=== PATIENT | female | born 1995 | race Two or more races ===

== ENCOUNTER 2022-10-20 08:04 | Inpatient (IN) ==
[2022-10-20] MEDS ORDERED: ePHEDrine sulfate 50 MG/ML AMP ONE (09:01)
[2022-10-20] MEDS ORDERED: fentaNYL citrate 100 MCG/2 ML VIAL ONE (09:02)
[2022-10-20] MEDS ORDERED: fentaNYL 2MCG/ML ROPIVACAINE 1.25MG/ML 100 ML BAG EPI ONE (09:02)
[2022-10-20] MEDS ORDERED: LIDOCAINE 2%/EPINEPHRINE 1:200,000 20 ML SDV ONE (09:02)
[2022-10-20] MEDS ORDERED: SODIUM CHLORIDE 0.9% INJ 10 ML VIAL ONE (09:02)
[2022-10-20] MEDS ORDERED: BUPIVACAINE 0.25% 30 ML VIAL ONE (09:02)
[2022-10-20] MEDS: LACTATED RINGER'S 1,000 ML IV PRN ×2 (09:10→10:12)
[2022-10-20] MEDS ORDERED: OXYTOCIN 30 UNITS/500 ML BAG IV PRN ×2 (09:11→17:43)
[2022-10-20] MEDS ORDERED: LIDOCAINE 1% LOCAL 20 ML VIAL INFIL PRN (09:11)
--- NOTE | 2022-10-20 09:26 | History & Physical Report ---
Date of Service October 20, 2022 Assessment & Plan (1) : (2) Gestational diabetes mellitus (GDM) affecting , antepartum: Plan 26 yo at 39 5/7 wga presents in labor VSS Fetus cat 1 Labor - will admit A1GDM - will get BG GBS neg desires epidural Admission and Anticipated Discharge Date Admission Date: October 20, 2022 History of Present Illness Chief Complaint: contractions Primary Care Provider: [facility] 26 yo at 39 5/7 wga presents w/ ctx that began around 2am and became q5min around 5am. Has had increased discharge, unsure if continuous LOF. 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 Hx: G1 2021 ectopic > R salpingectomy G2 current regular cycles denies hx STIs last pap at [facility] Allergies Allergy/AdvReac Type Severity Reaction Status Date / Time eggplant Allergy Rash Verified 10/20/22 09:16 shrimp Allergy Rash Verified 10/20/22 09:16 Home Medications Medication Instructions Recorded Confirmed Type prenat.vits,mayra,qqa-fohp-tqkgx 1 tab PO DAILY 02/27/22 10/15/22 History blood sugar diagnostic (OneTouch #150 ea 06/07/22 10/15/22 Rx Verio test strips) blood-glucose meter (OneTouch #1 ea 06/07/22 10/15/22 Rx Verio Meter) lancets 33 gauge (OneTouch Delica #150 ea 06/07/22 10/15/22 Rx Plus Lancet) acetone (urine) test (Ketone Urine #50 ea 06/08/22 10/15/22 Rx Test strips) prenat.vits,mayra,fvb-dcmi-xrgsl 1 tab PO DAILY 10/20/22 10/20/22 History Patient History Medical History Ectopic Hemorrhagic cyst of right ovary Surgical History History of salpingectomy S/P tonsillectomy Family History Mother Hypertension Social History (System 10/20/22 @ 09:16 by Michael Ivy) Smoking Status: Never smoker Hx Alcohol Use: No Hx Substance Use: No Preferred Language: Wolof Communication Ability: Effective Foundation Relations Director Required: No Beliefs That Will Affect Care: None marital status: marital status details: Annel (29) [phone] Current Living Situation: Spouse Current Living Situation Comment: lives with spouse, no pets. current occupational status: unemployed Feels Safe at Home: Yes Safety Concerns: Feels Safe At This Time Assistive Devices: None Physical Exam Genitourinary: OB Exam Abdomen: + vertex (confrimed by bsus) and + estimated weight (7-8) Manual OB Exam: + cervical dilation 3 cm, + cervical effacement 90% and + station -2 OB Exam Monitor Tracing: + external FHT monitor used, + external uterine monitor used (q5-6) and + category I (135/mod/+accel/-decel) SSE shows bag visualized at cervix, no pooling Results & Data ([facility]) Vital Signs (Past 12 Hours) Vital Signs Resp 10/20/22 08:30 20 Laboratory Results OB Labs: Blood Type B Positive 03/13/22 Antibody Screen NEGATIVE 03/13/22 Hemoglobin 12.1 g/dl (12.0-16.0) 08/06/22 Hematocrit 35.7 % (34.1-44.9) 08/06/22 Mean Corpuscular Volume 73.4 fL (80-100) L 03/13/22 Platelet Count 296 K/uL (130-400) 03/13/22 Rubella IgG Antibody Non Immune (Immune) L 03/13/22 Rapid Plasma Reagin Nonreactive (Nonreactive) 03/13/22 Hepatitis B Surface Antigen. NON-REACTIVE (NON-REACTIVE) 03/13/22 Hepatitis C Antibody (EIA) NON-REACTIVE (NON-REACTIVE) 03/13/22 HIV (1&2) Ag and Ab Confirmation NON-REACTIVE (NON-REACTIVE) 03/13/22 Glucose 1 Hour 50 gm Load 140 mg/dl (70-130) H 05/09/22 OB Optional Labs: Chlamydia trachomatis RNA NOT DETECTED (NOT DETECTED) 03/13/22 Neisseria gonorrhoeae RNA NOT DETECTED (NOT DETECTED) 03/13/22 Labs Reviewed: 03/13/22 HIV- non-reactive Hep C- non-reactive Hep B- non-reactive declines quad/afp - sLN gbs neg Diagnostic Findings 10/01 EFW 73%, ant plac Coding Level of Care Code None Diagnoses Z34.90 Gestational diabetes mellitus (GDM) affecting , antepartum O24.419
[2022-10-20 09:34] LABS: Hematocrit (blood only) 38.5 % (34.1-44.9); Hemoglobin 13.1 g/dl (12.0-16.0); Mean Corpuscular Hemoglobin 25.2 pg (25.0-34.0); Mean Corpuscular Volume 74.2 fL (80.0-100.0); Mean Platelet Volume 10.5 fL (9.4-12.3); Platelet Count 218 K/uL (130-400); RDW Standard Deviation 39.6 fL (36.4-46.3); Red Blood Count 5.19 M/uL (3.93-5.22); White Blood Count 13.65 K/ul (4.8-10.8)
[2022-10-20] MEDS ORDERED: NALBUPHINE HCL INJ 10 MG/ML AMP IV PRN (09:40)
[2022-10-20] MEDS ORDERED: diphenhydrAMINE 50 MG/ML VIAL IV PRN (09:40)
[2022-10-20] MEDS ORDERED: ePHEDrine sulfate 50 MG/ML AMP IV PRN (09:40)
[2022-10-20] MEDS ORDERED: fentaNYL 2MCG/ML ROPIVACAINE 1.25MG/ML 100 ML BAG EPI PRN (09:40)
[2022-10-20] MEDS ORDERED: NALOXONE HCL 0.4 MG/1 ML VIAL/CARP IV PRN (09:40)
[2022-10-20] MEDS ORDERED: NALOXONE HCL 1 MG in SODIUM CHLORIDE 0.9% 1000ML 1,000 ML IV PRN (09:40)
[2022-10-20] MEDS ORDERED: ONDANSETRON INJ 2 MG/ML 2 ML VIAL IV PRN (09:40)
--- NOTE | 2022-10-20 09:48 | Anesthesiology Consultation ---
Date of Service October 20, 2022 Assessment & Plan Chart Review Chart Review: Acceptable Risk for Labor Epidural Consults Requested none ASA ASA2 Proposed Anesthesia Anesthesia Type: Labor Epidural Risk / Benefits Reviewed With: PT / POA / Parent / Guardian, Accepts Plan and Informed Consent Obtained History Height/Weight Height: 5 ft 6 in Weight: 89.358 kg Allergies Allergy/AdvReac Type Severity Reaction Status Date / Time eggplant Allergy Rash Verified 10/20/22 09:16 shrimp Allergy Rash Verified 10/20/22 09:16 Medications Home Medications Medication Instructions Recorded Confirmed Last Taken prenat.vits,mayra,tip-oofq-eypef 1 tab PO DAILY 02/27/22 10/15/22 Unknown blood sugar diagnostic (OneTouch #150 ea 06/07/22 10/15/22 Unknown Verio test strips) blood-glucose meter (OneTouch #1 ea 06/07/22 10/15/22 Unknown Verio Meter) lancets 33 gauge (OneTouch Delica #150 ea 06/07/22 10/15/22 Unknown Plus Lancet) acetone (urine) test (Ketone Urine #50 ea 06/08/22 10/15/22 Unknown Test strips) prenat.vits,mayra,ymc-uekm-ujusv 1 tab PO DAILY 10/20/22 10/20/22 10/19/22 Active Medications Generic Name Dose Route Start Last Admin Trade Name Freq PRN Reason Stop Dose Admin Lactated Ringer's 1,000 mls @ 125 mls/hr 10/20/22 09:11 10/20/22 09:10 Lr IV 10/22/22 09:10 999 mls/hr .Q8H PRN Administration L&D Protocol Protocol Past Medical History Medical History Ectopic Ectopic of right ovary Gestational diabetes Hemorrhagic cyst of right ovary Exercise / Class Metabolic Activity II 4-5 Yardwork/Stairs/Walk up hill Past Family History Family History Mother Hypertension Past Surgical History Surgical History History of salpingectomy unilateral, ectopic , right, nov 2021 History of salpingectomy History of tonsillectomy S/P tonsillectomy Past Anesthesia History No Hx of Anesthesia Complications and No Family Hx of Anesthesia Complications History of PONV No Hx of PONV and No Hx of Motion Sickness Social History Smoking Status: Never smoker Hx Alcohol Use: No Hx Substance Use: No substance use type: does not use Physical Exam Vital Signs Last Vital Signs Pulse 94 H 10/20/22 09:43 Resp 20 10/20/22 08:30 Pulse Ox 99 10/20/22 09:43 ENMT Mouth: no dentition abnormality Thyromental Distance: > or= 3.5 Finger Breadths Mallampati Class: II Neck normal visual inspection Respiratory normal respiratory effort Auscultation: lungs clear to auscultation bilaterally Cardiovascular Rate/Rhythm: regular rate and regular rhythm Testing Laboratory Results 10/20/22 09:28 10/20/22 09:32 POC Glucose 105 H
--- NOTE | 2022-10-20 12:37 | Labor Progress Brief Note ---
Date of Service October 20, 2022 Subjective Comfortable w/ epidural Assessment & Plan (1) : (2) Gestational diabetes mellitus (GDM) affecting , antepartum: Plan 26 yo at 39 5/7 wga presents in labor VSS Fetus cat 1 Labor - good progress, now s/p arom. mec noted, fetus reassuring. Discussed impact that mec can have on status, pt and aware A1GDM - will get BG q4 GBS neg epidural in place Admission and Anticipated Discharge Date Admission Date: October 20, 2022 Physical Exam Genitourinary: Manual OB Exam: + cervical dilation (4-5), + cervical effacement 90%, + station -1 and + amniotic fluid (arom mec) OB Exam Monitor Tracing: + external FHT monitor used, + external uterine monitor used (q4-6) and + category I (135/mod/+accel/-decel) Results & Data ([facility]) Vital Signs (Past 12 Hours) Vital Signs Pulse Resp BP Pulse Ox 10/20/22 12:33 106 H 97 10/20/22 12:28 106 H 97 10/20/22 12:23 91 H 97 10/20/22 12:22 95 H 104/55 L 10/20/22 12:18 94 H 97 10/20/22 12:13 93 H 97 10/20/22 12:08 93 H 97 10/20/22 12:07 102 H 102/55 L 10/20/22 12:03 98 H 97 10/20/22 11:58 90 97 10/20/22 11:53 97 H 107/54 L 97 10/20/22 11:48 88 97 10/20/22 11:43 98 H 98 10/20/22 11:38 91 H 98 10/20/22 11:37 86 111/58 L 10/20/22 11:33 88 98 10/20/22 11:28 89 98 10/20/22 11:23 85 98 10/20/22 11:22 91 H 112/59 L 10/20/22 11:18 87 98 10/20/22 11:17 85 112/57 L 10/20/22 11:13 98 10/20/22 11:13 90 10/20/22 11:13 90 109/59 L 10/20/22 11:08 98 10/20/22 11:08 100 H 10/20/22 11:08 90 126/73 10/20/22 11:03 104 H 98 10/20/22 11:02 103 H 114/69 10/20/22 10:58 96 H 97 10/20/22 10:57 106 H 120/63 10/20/22 10:45 20 10/20/22 10:45 20 10/20/22 10:53 102 H 119/70 98 10/20/22 10:48 99 H 98 10/20/22 10:47 100 H 113/69 10/20/22 10:43 98 10/20/22 10:43 100 H 10/20/22 10:43 98 H 108/68 10/20/22 10:38 110 H 126/74 99 10/20/22 10:33 98 H 99 10/20/22 10:32 96 H 122/62 10/20/22 10:28 96 H 99 10/20/22 10:27 93 H 114/62 10/20/22 10:23 95 H 99 10/20/22 10:22 90 113/64 10/20/22 10:18 99 10/20/22 10:18 89 10/20/22 10:18 96 H 119/67 10/20/22 10:13 100 H 99 10/20/22 10:11 105 H 114/63 10/20/22 10:08 96 H 98 10/20/22 10:09 100 H 114/62 10/20/22 10:07 96 H 116/57 L 10/20/22 10:05 96 H 117/59 L 10/20/22 10:03 105 H 100 10/20/22 10:01 99 H 122/64 10/20/22 10:00 96 H 125/78 10/20/22 09:58 102 H 99 10/20/22 09:53 95 H 99 10/20/22 09:48 121 H 100 10/20/22 09:43 94 H 99 10/20/22 09:38 91 H 98 10/20/22 09:33 86 99 10/20/22 09:28 82 99 10/20/22 08:30 20 Coding Level of Care Code None Diagnoses Z34.90 Gestational diabetes mellitus (GDM) affecting , antepartum O24.419
--- NOTE | 2022-10-20 17:36 | Anesthesia Procedure Note ---
Date of Service October 20, 2022 Anesthesia Post Epidural Note Vital Signs Vital Signs: Temp Pulse Resp BP Pulse Ox 97.9 F 108 H 20 115/68 98 10/20/22 14:45 10/20/22 17:28 10/20/22 15:45 10/20/22 17:25 10/20/22 17:28 Notes Mental Status: alert / awake / arousable and participated in evaluation Nausea / Vomiting: adequately controlled Pain: adequately controlled Airway Patency, RR, SpO2: stable & adequate BP & HR: stable & adequate Hydration State: stable & adequate Neuraxial Anesthesia: was administered and sensory block is resolving Anesthetic Complications: no major complications apparent and Pt Satisfied with anesthetic care Epidural: Removed without complications and With tip intact
--- NOTE | 2022-10-20 17:41 | Delivery Summary ---
Vaginal Delivery Summary Date of Service October 20, 2022 Vaginal Delivery Summary and 2nd Degree LAC PREOPERATIVE DIAGNOSIS: 1. Single intrauterine at 39 5/7 wga 2. Labor 3. A1GDM 4. Rubella nonimmune POSTOPERATIVE DIAGNOSIS: 1. Single intrauterine at 39 5/7 wga 2. Labor 3. A1GDM 4. Rubella nonimmune 5. Delivered PROCEDURE: 1. Normal spontaneous vaginal delivery. SURGEON: Melita Johnson MD ANESTHESIA: Epidural. ESTIMATED BLOOD LOSS: 450 mL (had bleeding from laceration during pushing) FLUIDS: Continuous LR. URINE OUTPUT: None. COMPLICATIONS: None. CONDITION: Stable. INDICATIONS: 26 yo at 39 5/7 wga presented today with contractions increasing in frequency and intensity. She was checked and found to be 3-4cm. She was admitted and received an epidural for pain control. She underwent artificial ROM with meconium stained fluid and continued to progress spontaneously to complete and desired to push. FINDINGS: A viable male , weight pending with Apgars of 7 and 9 at 1 and 5 minutes respectively. SPECIMEN: Cord blood, placenta OPERATIVE REPORT: The patient progressed to 10 cm, 100% effaced and +2 station, pushed over intact perineum with anesthesia to deliver a viable male , weight and Apgars as above. Head of delivered in PORSHA position. No nuchal cord was present. Body and shoulders were delivered without difficulty. was delivered to maternal abdomen and nursing staff. Delayed cord clamping was started however due to infant being less vigorous with meconium was deferred. Cord was clamped and cut. Cord segment and blood were obtained. Placenta delivered spontaneously intact with 3-vessel cord, appeared to have a marginal cord insertion. IV oxytocin and fundal massage were given for excellent hemostasis. Vagina, cervix, perineum, and placenta were inspected. A deep second degree laceration was noted and repaired using 3-0 vicryl in the usual fashion after rectal exam was performed. Rectal exam was performed following repair which confirmed no stitches in the rectum. Sponge and needle counts correct x2. No sponges were left behind. Mother and stable in immediate period. [facility] [place] Vaginal Delivery Charge Vaginal Delivery Codes: 46065 global code for the antepartum, delivery, and post- Delivery Type Details: and 2nd Degree LAC
[2022-10-20] MEDS ORDERED: bisacodyL 10 MG SUPP PR PRN (17:43)
[2022-10-20] MEDS ORDERED: MEASLES, MUMPS & RUBELLA VIRUS VIAL SQ ONE (17:43)
[2022-10-20] MEDS ORDERED: HYDROCORTISONE ACETATE 25 MG SUPP PR PRN (17:43)
[2022-10-20] MEDS ORDERED: BENZOCAINE 20% AER SPR 82.5 GM CAN EXT PRN (17:43)
[2022-10-20] MEDS ORDERED: DIPHTHERIA/TETANUS/PERTUSSIS 0.5 ML SYR/VIAL IM ONE (17:43)
[2022-10-20] MEDS: IBUPROFEN 600 MG TAB PO PRN (19:51)
[2022-10-20] MEDS: DOCUSATE SODIUM 100 MG CAP PO SCH (23:05)
[2022-10-21] MEDS: IBUPROFEN 600 MG TAB PO PRN ×3 (06:30→13:46)
[2022-10-21 06:32] LABS: Hematocrit (blood only) 30.8 % (34.1-44.9); Hemoglobin 10.5 g/dl (12.0-16.0); Mean Corpuscular Hemoglobin 25.7 pg (25.0-34.0); Mean Corpuscular Hgb Conc 34.1 g/dL (32.0-36.0); Mean Corpuscular Volume 75.3 fL (80.0-100.0); Mean Platelet Volume 10.8 fL (9.4-12.3); Platelet Count 187 K/uL (130-400); RDW Coefficient of Variation 14.6 % (11.5-14.5); RDW Standard Deviation 39.2 fL (36.4-46.3); Red Blood Count 4.09 M/uL (3.93-5.22); White Blood Count 19.54 K/ul (4.8-10.8)
--- NOTE | 2022-10-21 07:07 | Obstetrical Progress Note ---
Date of Service October 21, 2022 Assessment & Plan (1) Encounter for care and examination after delivery: 26 yo PP1 from , doing well -Meeting all pp milestones -B+/rubella nonimmune/ but not interested, supplementing. ppMMR ordered -f/u 6 weeks for appt, continue rout pp care Subjective Ambulation: ambulating normally Voiding: no voiding problems Passing Gas:: Yes Diet Tolerance:: regular diet Lochia:: Small Feeding Type:: breast feeding (supplementing) Pain well managed with medication Review of Systems Denies fevers, chills, n/v, BURGESS, CP, SOB Physical Exam Constitutional WD/WN, vitals as above no acute distress Respiratory normal respiratory effort, lungs clear to auscultation Cardiovascular RRR, no murmur, no edema Gastrointestinal (Abdomen) Percussion/Palpation: abdomen soft; abdomen nontender fundus firm at umbilicus and NT Musculoskeletal BLE symmetric, nonerythematous, nontender Results & Data ([facility]) Vital Signs (Past 12 Hours) Vital Signs Temp Pulse Pulse Resp BP BP Pulse Ox 10/21/22 03:12 98.1 F 96 H 18 105/70 98 10/20/22 23:10 97.5 F L 121 H 18 104/66 98 10/20/22 20:40 98.1 F 116 H 20 114/74 96 10/20/22 19:30 114 H 119/70 O2 Del Method 10/21/22 03:12 Room Air 10/20/22 23:10 Room Air 10/20/22 20:40 Room Air 10/20/22 19:30
[2022-10-21] MEDS: DOCUSATE SODIUM 100 MG CAP PO SCH ×2 (09:06→20:35)
[2022-10-21] MEDS: ACETAMINOPHEN 325 MG TAB PO PRN ×2 (09:06→20:33)
[2022-10-21] MEDS: FERROUS SULFATE 325 MG TAB PO SCH (09:06)
[2022-10-21] MEDS: PRENATAL VITAMIN 1 TAB PO SCH (09:06)
[2022-10-21] MEDS ORDERED: bisacodyL 5 MG TABEC PO SCH (20:00)
[2022-10-22] MEDS: IBUPROFEN 600 MG TAB PO PRN ×3 (04:09→12:28)
--- NOTE | 2022-10-22 05:00 | Obstetrical Progress Note ---
Date of Service October 22, 2022 Assessment & Plan (1) Encounter for care and examination after delivery: Plan - Overall, feeling well and eating well today - feeding going well, concerns discussed with parents - Urinating and stooling appropriately - Ambulating well within room - Pain controlled w/ Ibuprofen - Vitals stable, following HR - Hgb 10/5 on 10/21 - Routine PP care progressing well - Anticipate discharge at 48 hours - Recommending f/u outpatient in 6 weeks Admission and Anticipated Discharge Date Admission Date: October 20, 2022 Supervising Physician Co-Signing Physician Notes Resident Physician Supervision Note: I interviewed and examined the patient. Discussed with Dr. Robbins and agree with findings and plan as documented in the note. Any exceptions or clarifications are listed here: PP2 s/p . Perineal discomfort that is relieved by ibuprofen/tylenol, notes some burning when urine hits the skin but no burning with urination itself. Discussed this can occur as tear is healing, pt reassured. VSS, exam benign and wnl. Stable for d/c home today Documented By: Melita Johnson MD Subjective Patient is a 26 y/o female who is PPD #2 following delivery of a male at 39w5d. She reports perineal discomfort and low back pain this morning. - Ambulation - well throughout room - Voiding/Olson - independent voids, no dysuria or pressure - Gas/Stool - passing gas and moving bowels - Diet - regular, no nausea or emesis - Lochia - diminishing, moderate amount - Feeding Type - breast feeding, associated uterine cramping - Pain Level - 7/10, controlled with Ibuprofen Review of Systems - Denies fever, chills, sweats - Denies shortness of breath, difficulty breathing, chest pain, palpitations, chest pressure. - Denies breast pain. - Denies dysuria. - Denies headache or changes in vision. Physical Exam Physical Exam: General: Alert, oriented. No acute distress. Cardiac: RRR, normal S1/S2, no murmurs/rubs/gallops. Respiratory: Non-labored, CTAB, no wheezes/rales/rhonchi. Symmetric chest rise. Abdomen: Soft, nontender, nondistended. Bowel sounds present. Uterus: Uterine fundus firm, palpable 2 cm below umbilicus. Back: No rashes, ecchymosis, or erythema, no TTP of lumbar spine. Lower Extremities: No lower extremity edema or swelling. No deep calf pain. Maciej's negative bilaterally. Results & Data ([facility]) Vital Signs (Past 12 Hours) Vital Signs Temp Pulse Resp BP 10/21/22 23:45 36.7 C 105 H 18 102/67 10/21/22 20:30 36.8 C 105 H 18 110/72 Resident Activity Tracking Resident Involvement: Resident Care Provided Care Provided: OB Delivery
[2022-10-22] MEDS: DOCUSATE SODIUM 100 MG CAP PO SCH (07:57)
[2022-10-22] MEDS: FERROUS SULFATE 325 MG TAB PO SCH (07:57)
[2022-10-22] MEDS: PRENATAL VITAMIN 1 TAB PO SCH (07:57)
== END 2022-10-22 14:40 | disposition home or self-care (01) | DRG 807 ==
LOC: OPB 08:04 → MERGE 08:04 → 4S1 08:13 → 4E2 20:12